=== PATIENT | female | born 1970 | race Caucasian/White ===

== ENCOUNTER 2019-10-24 12:59 | Emergency (ER) | payer BC, SELFPAY ==
[2019-10-24 13:12] VITALS: BP 158/72; PULSE 82; RESP 16; TEMP 36.7; O2SAT 98; BMI 45.1
--- NOTE | 2019-10-24 13:25 | HMH.EDUTC ---
[facility] [place] Impression: Torticollis, acute Disposition: Home, Self-Care Condition on Discharge: Good Instructions: Torticollis, DI for Torticollis, Cyclobenzaprine, Etodolac, DI for Muscle Spasm Additional Instructions: *Etodolac dotty 6 hours with meal as needed for pain/inflammation *Remember you had a Toradol shot in the clinic today, which is similar to Etodolac and Motrin Do not start Etodolac for the next 8-10 hrs *Not additional anti-inflammatory like motrin, aleve, advil with the above amount of Etodolac. You can still take Tylenol every 4 hours as needed if you need something else for pain *Ice 20 minutes every 2 hours for the first 48 hours after the initial injury followed by moist heat every 20 minutes 3-4 times a day to affected area *Muscle relaxer every 8 hours as needed for muscle spasms but remember, it WILL cause drowsiness You cannot take it and drive, operate machinery or care for small children. *Keep this area active, no movement leads to more stiffness, However take it easy and avoid heavy lifting pushing or pulling *Follow up with you family doctor if no improvement for further treatment Return if needed Straight to ER if any life threatening symptoms Prescriptions: Etodolac [Etodolac 200mg Cap*] 200 mg PO Q6H PRN #20 cap PRN Reason: Moderate Pain [id number] Cyclobenzaprine HCl [Flexeril 10mg tablet] 10 mg PO TID PRN #15 tab PRN Reason: Muscle Spasm Transmission Status[id number] Referrals: Provider,Referral, [Primary Care Provider] - As needed Time of Disposition: 14:00 Medical Decision Making - Yg Inquiry Pt receiving controlled substance: No Yg was queried for this patient: No Vital Signs: 10/24/19 13:12 10/24/19 14:00 Temperature 98.1 F 98.0 F Temperature Source Oral Oral Pulse Rate 70 Pulse Rate [Right Brachial] 82 Respiratory Rate 16 16 Blood Pressure 150/70 H Blood Pressure [Right Arm] 158/72 H Blood Pressure Mean [Right Arm] 100 Blood Pressure Source Automatic Cuff Blood Pressure Source [Right Arm] Automatic Cuff Blood Pressure Position Sitting Blood Pressure Position [Right Arm] Sitting 02 Sat by Pulse Oximetry 98 Oxygen Delivery Method Room Air Room Air Orders (Tests/Meds): ED MEDICATIONS Discontinued Medications Generic Name Dose Route Start Last Admin Trade Name Mary PRN Reason Stop Dose Admin Ketorolac Tromethamine 60 mg 10/24/19 13:28 10/24/19 13:39 Toradol 60mg/2ml Vial IM 10/24/19 13:29 60 mg ONCE ONE Administration [facility] [place] - General Stated complaint: neck pain Time Seen by Provider: 10/24/19 13:25 Mode of Arrival: Ambulatory Source of Information: Patient Limitations: No Limitations Description of Symptoms (Recalled from Triage Doc. by RN): Pt c/o her neck feeling stiff since Monday HEENT Symptoms (Recalled from RN notes): No Resp Symptoms (Recalled from RN notes): No Skin Symptoms (Recalled from RN notes): No MS Symptoms (Recalled from RN notes): Yes (stiff neck) Functional Status (Recalled from RN notes): na - History of Present Illness Provider Complaint: Patient states that she woke up a couple days ago with muscle spasm in the right side of her neck and shoulder area and unable to turn her head States that she has had muscle spasm like this before and used over the counter Muscle rubs and they helped but has not helped much this time and still having spasms - Related Data Previous Rx's Medication Instructions Recorded Cyclobenzaprine HCl [Flexeril 10mg 10 mg PO TID PRN #15 tab 10/24/19 tablet] Etodolac [Etodolac 200mg Cap*] 200 mg PO Q6H PRN #20 cap 10/24/19 Allergies Allergy/AdvReac Type Severity Reaction Status Date / Time No Known Allergies Allergy Verified 10/24/19 13:05 - Worker's Comp Is this a Worker's Comp case?: No [facility] History - Hepatitis A Screen Drug use history?: No High ris
[2019-10-24 14:00] VITALS: BP 150/70; PULSE 70; RESP 16; TEMP 36.7; O2SAT 98
== END 2019-10-24 14:00 | disposition home or self-care (01) ==
PROVIDERS: Emergency Provider Nurse Practitioner
DX: M43.6 Torticollis (principal); F17.210 Nicotine dependence, cigarettes, uncomplicated
CPT/HCPCS: 96372; 99201

== ENCOUNTER 2020-01-11 13:11 | Emergency (ER) | payer BC, SELFPAY ==
[2020-01-11 13:57] VITALS: BP 129/84; PULSE 80; RESP 20; O2SAT 99; BMI 33.4
--- NOTE | 2020-01-11 14:04 | HMH.EDUTC ---
[facility] [place] Clinical Impression: UTI (urinary tract infection) Qualifiers: Urinary tract infection type: acute cystitis Hematuria presence: without hematuria Qualified Code(s): N30.00 - Acute cystitis without hematuria Disposition: Home, Self-Care Condition on Discharge: Good Instructions: Urinary Tract Infection Additional Instructions: Increase fluids, water and not soda or tea. Can drink cranberry juice or cranberry extract. White front to back Wear cotton underwear Empty bladder after intercourse Start antibiotics immediately and make sure you take the full course although you may start to see improvement over the next 48 hours. You can eat yogurt or take probiotics to decrease diarrhea or yeast infection caused by the antibiotic Be sure to follow-up anytime for new or worsening symptoms in 48 hours for wound urine culture results be sure to let you PCP no recent urine for culture so they can request records and ensure that you have appropriate antibiotic if you are not getting better or getting worse. If symptoms worsen or do not improve return or be seen in the ER. Follow-up with primary care this week. Prescriptions: cephALEXin [Keflex 500mg Cap] 500 mg PO BID 10 Days #20 cap Prescription Printed Referrals: PCPTraci [Primary Care Provider] - Medical Decision Making - Yg Inquiry Pt receiving controlled substance: No Vital Signs: 01/11/20 13:57 Pulse Rate [Radial] 80 Respiratory Rate 20 Blood Pressure [Right Arm] 129/84 Blood Pressure Mean [Right Arm] 99 Blood Pressure Source [Right Arm] Automatic Cuff Blood Pressure Position [Right Arm] Sitting 02 Sat by Pulse Oximetry 99 Oxygen Delivery Method Room Air [facility] [place] - General Chief complaint: Urgent [facility] Stated complaint: uti or kidney infection Time Seen by Provider: 01/11/20 14:05 Mode of Arrival: Ambulatory Source of Information: Patient Limitations: No Limitations Description of Symptoms (Recalled from Triage Doc. by RN): possible uti HEENT Symptoms (Recalled from RN notes): No Resp Symptoms (Recalled from RN notes): No Skin Symptoms (Recalled from RN notes): No MS Symptoms (Recalled from RN notes): No Functional Status (Recalled from RN notes): wnl - History of Present Illness Provider Complaint: 49 yr old female presents for poss uti.. Pt states she is having freq, urgency and pelvic pressure. - Related Data Previous Rx's Medication Instructions Recorded Cyclobenzaprine HCl [Flexeril 10mg 10 mg PO TID PRN #15 tab 10/24/19 tablet] Etodolac [Etodolac 200mg Cap*] 200 mg PO Q6H PRN #20 cap 10/24/19 cephALEXin [Keflex 500mg Cap] 500 mg PO BID 10 Days #20 cap 01/11/20 Allergies Allergy/AdvReac Type Severity Reaction Status Date / Time No Known Allergies Allergy Verified 10/24/19 13:05 - Worker's Comp Is this a Worker's Comp case?: No [facility] History - Hepatitis A Screen Drug use history?: No High risk sexual behaviors?: No History of sexually transmitted infection?: No Currently employed?: No Childcare worker?: No Do you have indoor plumbing?: Yes Do you have electricity?: Yes Attestation statement:: This patient has been screened for Hepatitis A risk factors. I have reviewed the patient's past medical history: Yes Medical History: Denies:: Cancer, Diabetes Mellitus Type 1, Diabetes Mellitus Type 2, MRSA Other Surgeries: Yes: No Previous Surgery Amputation: No Fractures: No - Social History Smoking Status: Current every day smoker Tobacco Type: cigarettes # Packs/Day (cigarettes): 1 Alcohol Intake: never Occupational Status: other ROS Obtained: Yes Systems reviewed as appropriate & no additional complaints - Constitutional Constitutional: Reports system reviewed and no additional complaints, except as docu, Denies chills, Denies fever(s) - Eyes Eyes: Reports system reviewed and no additional complaints, except as docu, Denies dry eyes - ENT Ears, Nose, Mouth, and Throat: Reports
[2020-01-11 14:16] VITALS: BP 129/84; PULSE 80; RESP 20; TEMP 37; O2SAT 99
== END 2020-01-11 14:17 | disposition home or self-care (01) ==
LOC: ER 13:18 → UTC 13:26
PROVIDERS: Emergency Provider Nurse Practitioner Family
DX: N30.00 Acute cystitis without hematuria (principal); F17.210 Nicotine dependence, cigarettes, uncomplicated
CPT/HCPCS: 99201

== ENCOUNTER 2020-03-20 19:29 | Emergency (ER) | payer BC, SELFPAY ==
[2020-03-20 19:31] VITALS: BP 190/94; PULSE 96; RESP 20; TEMP 36.6; O2SAT 99; BMI 47.5
--- NOTE | 2020-03-20 19:42 | HMH.EDUTC ---
[facility] [place] Clinical Impression: Abdominal pain Qualifiers: Abdominal location: generalized Qualified Code(s): R10.84 - Generalized abdominal pain Disposition: Home, Self-Care Condition on Discharge: Good Instructions: DI for Abdominal Pain-Adult Additional Instructions: [place] diet, clear liquid. Return diarrhea sample for testing if diarrhea recurs. Return to [place]/ER if severe pain, uncontrollable vomiting, fever, rectal bleeding, etc Prescriptions: Dicyclomine HCl [Bentyl 10mg capsule] 10 mg PO TID 10 Days #30 cap Transmission Status: Pending to [facility] ondansetron HCL [Ondansetron 8mg tab*] 8 mg PO TIDP PRN 10 Days #30 tab PRN Reason: Nausea [facility] Referrals: PCP,No [Primary Care Provider] - Time of Disposition: 20:25 Medical Decision Making - Yg Inquiry Pt receiving controlled substance: No Yg was queried for this patient: No Vital Signs: 03/20/20 19:31 Temperature 97.9 F Temperature Source Oral Pulse Rate [Left Radial] 96 H Respiratory Rate 20 Blood Pressure [Right Arm] 190/94 H Blood Pressure Mean [Right Arm] 126 Blood Pressure Source [Right Arm] Automatic Cuff 02 Sat by Pulse Oximetry 99 Oxygen Delivery Method Room Air - Lab Data Lab Results 03/20/20 19:48: Urine Color Yellow, Urine Appearance Clear, Urine pH 5.5, Ur Specific [place] 1.030, Urine Protein Negative, Urine Glucose (UA) Negative, Urine Ketones Negative, Urine Blood Negative, Urine Nitrate Negative, Urine Bilirubin Negative, Urine Urobilinogen 0.2, Ur Leukocyte Esterase Negative Orders (Tests/Meds): ED MEDICATIONS Discontinued Medications Generic Name Dose Route Start Last Admin Trade Name Freq PRN Reason Stop Dose Admin Dicyclomine HCl 20 mg 03/20/20 20:00 03/20/20 20:09 Dicyclomine 10mg Capsule PO 03/20/20 20:01 20 mg ONCE ONE Administration Ondansetron HCl 4 mg 03/20/20 20:00 03/20/20 20:09 Ondansetron 4mg Odt SL 03/20/20 20:01 4 mg ONCE ONE Administration Medical Decision Narrative: Some relief with Zofran and Bentyl [facility] [place] HPI - General Stated complaint: Stomache Time Seen by Provider: 03/20/20 19:42 - History of Present Illness Provider Complaint: Abdominal pain and diarrhea started 2 nights ago after eating dinner. Had diarrhea, stomach cramps, and pain in her legs. No fever. [place] better today, but stomach cramping recurred tonight. No fever tonight. No vomiting or diarrhea yet tonight. Some dysuria. Denies ear pain or sore throat. Denies cough. No loss of sense of smell or taste. No known COVID19 exposure, but does work at [employer]. Takes Omeprazole daily. Has taken Tums as well but they have not helped. Onset (ago): day(s) (2) Location: abdomen Radiation: non-radiation Relieving factors: none Exacerbating factors: none Associated symptoms: nausea/vomiting Treatments prior to arrival: none - Related Data Previous Rx's Medication Instructions Recorded Cyclobenzaprine HCl [Flexeril 10mg 10 mg PO TID PRN #15 tab 10/24/19 tablet] Etodolac [Etodolac 200mg Cap*] 200 mg PO Q6H PRN #20 cap 10/24/19 cephALEXin [Keflex 500mg Cap] 500 mg PO BID 10 Days #20 cap 01/11/20 Dicyclomine HCl [Bentyl 10mg 10 mg PO TID 10 Days #30 cap 03/20/20 capsule] ondansetron HCL [Ondansetron 8mg 8 mg PO TIDP PRN 10 Days #30 tab 03/20/20 tab*] Allergies Allergy/AdvReac Type Severity Reaction Status Date / Time No Known Allergies Allergy Verified 10/24/19 13:05 [facility] History - Hepatitis A Screen Attestation statement:: This patient has been screened for Hepatitis A risk factors. I have reviewed the patient's past medical history: Yes Medical History: Denies:: Cancer, Diabetes Mellitus Type 1, Diabetes Mellitus Type 2, MRSA Other Surgeries: Yes: No Previous Surgery Amputation: No Fractures: No - Social History Smoking Status: Current every day smoker Tobacco Type: cigarettes # Pa
[2020-03-20 20:00] LABS: Apearance,Urine Clear (Clear); Bilirubin,Urine Negative (Negative); Blood, Urine Negative (Negative); Color,Urine Yellow (Yellow); Glucose,Urine (UA) Negative (Negative); Ketones,Urine Negative (Negative); PH,Urine 5.5 (5.0-8.5); Protein,Urine Negative (Negative); UTC Leukocyte Esterase,Urine Negative (Negative); UTC Nitrate,Urine Negative (Negative); Urobilinogen,Urine 0.2 EU/dl (0.2)
[2020-03-20 20:31] VITALS: BP 190/94; PULSE 96; RESP 20; TEMP 36.6; O2SAT 99
== END 2020-03-20 20:32 | disposition home or self-care (01) ==
PROVIDERS: Emergency Provider Physician Assistant
DX: R10.84 Generalized abdominal pain (principal); R19.7 Diarrhea, unspecified; F17.210 Nicotine dependence, cigarettes, uncomplicated
CPT/HCPCS: 81003; 99201

== ENCOUNTER 2021-03-02 19:37 | Emergency (ER) | payer BC, SELFPAY ==
[2021-03-02 20:19] VITALS: BP 136/88; PULSE 91; RESP 16; TEMP 37.1; O2SAT 98; BMI 44.4
[2021-03-02 21:16] VITALS: BP 136/88; PULSE 91; RESP 16; TEMP 37.1
--- NOTE | 2021-03-02 21:21 | HMH.EDUTC ---
[facility] [place] Clinical Impression: Bronchitis Sinusitis Qualifiers: Sinusitis location: unspecified location Chronicity: unspecified Qualified Code(s): J32.9 - Chronic sinusitis, unspecified Disposition: Home, Self-Care Condition on Discharge: Good Instructions: Sinusitis, DI for Sinusitis, Acute Bronchitis Additional Instructions: ? Start antibiotic today. Be sure to complete entire prescription even if feeling better ? Monitor temp. Tylenol every 4 hours as needed and / or ibuprofen every 6 hours as needed ( As long as your primary care physician has told you that it ok to take both. For fever/aches/pains ER if no less than 101 despite Tylenol or Motrin ? Humidifier/vaporizer or hot steamy shower ? Inhaler every 4-6 hours as needed like we discussed. If unsure how to use it, ask pharmacist to demonstrate how. Should help open airways and improve cough, wheezing, and shortness of breath *Tessalon Perles will not cause drowsiness but use at bedtime to help stop cough so that you may get some rest. *Start steroid today. Helps with inflammation therefore, cough and wheezing. Follow directions on the package. Reviewed side effects. Patient reports taking them before. Follow up IMMEDIATELY for new or worsening of symptoms OR no noticeable improvement over the next 48-72 hours. 911 immediately for any life threatening symptoms such as chest pain or difficulty breathing You were tested for today for COVID19 your test result should be back in the next 24-48 hours, you was given handout with instructions on how to log onto the [facility] portal if you have trouble you may call back for your results You was given a handout with instructions for Self Quarantine and Self isolation for while you wait on test results and what to do if they are positive If you are positive the Health Dept will be contacting you also Make sure to take your Vitamins Vit. C Vit D and Zinc if you can take them Prescriptions: Albuterol Sulfate [Proventil-HFA 90mcg/puff Inh] 1 - 2 puffs IH Q6HP PRN #1 each PRN Reason: Shortness Of Breath Transmission Status: Pending to [facility] predniSONE [Deltasone 10mg tablet] 10 mg PO BID 5 Days #10 tab Transmission Status: [facility] Azithromycin [Z-Dave 250mg Tab] 250 mg PO DIRECTED #6 tab Transmission Status: Pending to [facility] Referrals: Provider,Referral, MD [Primary Care Provider] - As needed Forms: Work/School Release Time of Disposition: 21:32 Medical Decision Making - Yg Inquiry Pt receiving controlled substance: No Yg was queried for this patient: No Vital Signs: 03/02/21 20:19 03/02/21 21:16 Temperature 98.7 F 98.7 F Temperature Source Oral Pulse Rate 91 H Pulse Rate [Left] 91 H Respiratory Rate 16 16 Blood Pressure 136/88 Blood Pressure [Right Arm] 136/88 Blood Pressure Mean [Right Arm] 104 02 Sat by Pulse Oximetry 98 Medical Decision Narrative: Patient states that she has taken azithromycin and prednisone in the past without complications or reactions [facility] [place] - General Stated complaint: cough&congestion Time Seen by Provider: 03/02/21 21:21 Mode of Arrival: Ambulatory Source of Information: Patient Limitations: No Limitations Description of Symptoms (Recalled from Triage Doc. by RN): pt c/o cough and congestion x3 days HEENT Symptoms (Recalled from RN notes): Yes (congestion) Resp Symptoms (Recalled from RN notes): Yes (cough) Skin Symptoms (Recalled from RN notes): No MS Symptoms (Recalled from RN notes): No Functional Status (Recalled from RN notes): na - History of Present Illness Provider Complaint: Patient state that she has been having sinus pain and pressure along with cough, sore throat and drianage States that she thinks it is her sinuses again States that she hasnt been around anyone with COVID that she is aware of but elderly mother lives with her and she wanted to get checked for that too Denies produc
== END 2021-03-02 21:38 | disposition home or self-care (01) ==
PROVIDERS: Emergency Provider Nurse Practitioner
DX: J20.9 Acute bronchitis, unspecified (principal); J32.9 Chronic sinusitis, unspecified; Z20.822 Contact with and (suspected) exposure to COVID-19; F17.210 Nicotine dependence, cigarettes, uncomplicated
CPT/HCPCS: 99202; C9803; G0463; U0003; U0005

== ENCOUNTER 2021-09-20 19:05 | Emergency (ER) | payer BC, SELFPAY ==
[2021-09-20 19:48] VITALS: BP 153/89; PULSE 115; RESP 20; TEMP 36.7; O2SAT 96; BMI 45.7
--- NOTE | 2021-09-20 20:09 | HMH.EDUTC ---
[facility] [place] Clinical Impression: Low back pain Qualifiers: Chronicity: acute Back pain laterality: left Sciatica presence: with sciatica Sciatica laterality: sciatica of left side Qualified Code(s): M54.42 - Lumbago with sciatica, left side Sciatica Qualifiers: Laterality: left Qualified Code(s): M54.32 - Sciatica, left side Disposition: Home, Self-Care Condition on Discharge: Good Instructions: Low Back Pain, DI for Back Pain With Sciatica Additional Instructions: Go home and rest. It would be best if you rested tomorrow too. No heavy lifting. No twisting. Take the oral medications as directed. The muscle relaxer (cyclobenzaprine--Flexeril) will make you drowsy, so don't drive or operate heavy machinery after taking it. Don't start the oral steroids (medrol dose pack) until tomorrow, since you had the shots in here today. Follow up with your regular doctor. GO TO THE ER FOR ANY WORSENING SYMPTOMS OR CONCERN, ESPECIALLY BOWEL OR BLADDER ISSUES, SADDLE AREA NUMBNESS, FEVER, ETC Prescriptions: Cyclobenzaprine HCl [Cyclobenzaprine 10mg Tab] 10 mg PO BIDP PRN #20 tab PRN Reason: Muscle Spasm Transmission Status: Received by [facility] methylPREDNISolone [Medrol] 4 mg PO DIRECTED 6 Days #21 packet Transmission Status: Received by [facility] Referrals: Wai Watkins [Primary Care Provider] - Forms: Work/School Release Time of Disposition: 20:39 Medical Decision Making - Medical Records Medical records reviewed: No: I reviewed the patient's medical records. - Yg Inquiry Pt receiving controlled substance: No Vital Signs: 09/20/21 19:48 09/20/21 20:44 Temperature 98.1 F 98.1 F Temperature Source Oral Pulse Rate 115 H Pulse Rate [Left] 115 H Respiratory Rate 20 20 Blood Pressure 153/89 H Blood Pressure [Right Arm] 153/89 H Blood Pressure Mean [Right Arm] 110 02 Sat by Pulse Oximetry 96 Orders (Tests/Meds): ED MEDICATIONS Discontinued Medications Generic Name Dose Route Start Last Admin Trade Name Freq PRN Reason Stop Dose Admin Ketorolac Tromethamine 60 mg 09/20/21 20:32 09/20/21 20:38 Ketorolac 60mg/2ml Vial IM 09/20/21 20:33 60 mg ONCE ONE Administration Ketorolac Tromethamine 60 mg 09/20/21 20:32 Ketorolac 60mg/2ml Vial IM 09/20/21 20:33 ONCE ONE Methylprednisolone Sodium Succinate 125 mg 09/20/21 20:32 09/20/21 20:38 Methylprednisolone Sod Succ 125mg Vial IM 09/20/21 20:33 125 mg ONCE ONE Administration Methylprednisolone Sodium Succinate 125 mg 09/20/21 20:32 Methylprednisolone Sod Succ 125mg Vial IM 09/20/21 20:33 ONCE ONE [facility] [place] - General Stated complaint: left leg pain Time Seen by Provider: 09/20/21 20:11 Mode of Arrival: Ambulatory Source of Information: Patient Limitations: No Limitations Description of Symptoms (Recalled from Triage Doc. by RN): pt states she started having pain that radiates from the top of her leg down to her foot. pt denies any injury. HEENT Symptoms (Recalled from RN notes): No Resp Symptoms (Recalled from RN notes): No Skin Symptoms (Recalled from RN notes): No MS Symptoms (Recalled from RN notes): Yes Functional Status (Recalled from RN notes): wnl - History of Present Illness Provider Complaint: She states that for the past 1 week she has been having left lower back pain that goes down her left leg when she bends or twists her back. She denies any injury. - Related Data Previous Rx's Medication Instructions Recorded Cyclobenzaprine HCl [Flexeril 10mg 10 mg PO TID PRN #15 tab 10/24/19 tablet] Etodolac [Etodolac 200mg Cap*] 200 mg PO Q6H PRN #20 cap 10/24/19 cephALEXin [Keflex 500mg Cap] 500 mg PO BID 10 Days #20 cap 01/11/20 Dicyclomine HCl [Bentyl 10mg 10 mg PO TID 10 Days #30 cap 03/20/20 capsule] ondansetron HCL [Ondansetron 8mg 8 mg PO TIDP PRN 10 Days #30 tab 03/20/20 tab*] Albuterol Sulfate [Proventil-
[2021-09-20 20:44] VITALS: BP 153/89; PULSE 115; RESP 20; TEMP 36.7
== END 2021-09-20 20:47 | disposition home or self-care (01) ==
PROVIDERS: Emergency Provider Nurse Practitioner Family; PCP Family Medicine
DX: M54.42 Lumbago with sciatica, left side (principal); M54.16 Radiculopathy, lumbar region; M79.662 Pain in left lower leg; F17.210 Nicotine dependence, cigarettes, uncomplicated; Z79.51 Long term (current) use of inhaled steroids; Z79.52 Long term (current) use of systemic steroids; Z79.899 Other long term (current) drug therapy
CPT/HCPCS: 96372; 99213; G0463

== ENCOUNTER 2022-03-27 11:38 | Emergency (ER) | payer BC, SELFPAY ==
--- NOTE | 2022-03-27 11:46 | EXP.UTC ---
Discharge Plan Disposition Patient Disposition: Home, Self-Care Condition: Good Prescriptions Prescriptions: New amoxicillin [amoxicillin] 500 mg tablet 500 mg PO TID 10 Days Qty: 30 0RF methylprednisolone 4 mg Tablets,Dose Pack 4 mg PO DIRECTED Qty: 21 0RF No Action cyclobenzaprine 10 MG tablet 10 mg PO TID PRN (Reason: Muscle Spasm) Qty: 15 0RF etodolac 200 MG capsule 200 mg PO Q6H PRN (Reason: Moderate Pain) Qty: 20 0RF prednisone 10 MG tablet 10 mg PO BID 5 Days Qty: 10 0RF azithromycin 250 MG tablet 250 mg PO DIRECTED Qty: 6 0RF Rx Instructions: Take two (2) tablets on day #1, then one (1) tablet day #2 thru #5 albuterol sulfate 200 PUFFS HFA aerosol inhaler 1 - 2 puffs IH Q6HP PRN (Reason: Shortness Of Breath) Qty: 1 0RF cephalexin 500 MG capsule 500 mg PO BID 10 Days Qty: 20 0RF ondansetron HCl 8 MG tablet 8 mg PO TIDP PRN (Reason: Nausea) 10 Days Qty: 30 0RF dicyclomine 10 MG capsule 10 mg PO TID 10 Days Qty: 30 0RF cyclobenzaprine 10 MG tablet 10 mg PO BIDP PRN (Reason: Muscle Spasm) Qty: 20 0RF methylprednisolone 4 MG tablets,dose pack 4 mg PO DIRECTED 6 Days Qty: 21 0RF Referrals Follow up/Referrals: Provider,Referral, MD [Primary Care Provider] - See instructions Activity Restrictions/Add. Instructions Additional Instructions/Restrictions: Drink plenty of fluids. Take tylenol or ibuprofen for pain or fever. Take the medications as directed. Follow up with your regular doctor. GO TO THE ER FOR ANY WORSENING SYMPTOMS Don't start the oral steroids until tomorrow, since you had the shot here today. Clinical Impressions Clinical Impression: Otitis media Instructions Patient Instructions: Middle Ear Infection, Dexamethasone Injection Discharge ED Provider: Aneesh Balderas [facility] HPI General Stated complaint: ear ache Time Seen by Provider: 03/27/22 11:46 History of Present Illness Provider Complaint: she c/o bilateral ear pain for the past 3 days. Related Data Previous Rx's Medication Instructions Recorded cyclobenzaprine 10 mg tablet 10 mg PO TID PRN Muscle Spasm #15 10/24/19 tabs etodolac 200 mg capsule 200 mg PO Q6H PRN Moderate Pain 10/24/19 #20 caps cephalexin 500 mg capsule 500 mg PO BID 10 days #20 caps 01/11/20 dicyclomine 10 mg capsule 10 mg PO TID 10 days #30 caps 03/20/20 ondansetron HCl 8 mg tablet 8 mg PO TIDP PRN Nausea 10 days 03/20/20 #30 tabs albuterol sulfate 90 mcg/actuation 1 - 2 puffs IH Q6HP PRN Shortness 03/02/21 aerosol inhaler Of Breath #1 ea azithromycin 250 mg tablet 250 mg PO DIRECTED #6 tabs 03/02/21 prednisone 10 mg tablet 10 mg PO BID 5 days #10 tabs 03/02/21 cyclobenzaprine 10 mg tablet 10 mg PO BIDP PRN Muscle Spasm #20 09/20/21 tabs methylprednisolone 4 mg tablets in 4 mg PO DIRECTED 6 days #21 09/20/21 a dose pack packets amoxicillin 500 mg tablet 500 mg PO TID 10 days #30 tabs 03/27/22 methylprednisolone 4 mg tablets in 4 mg PO DIRECTED #21 tabs 03/27/22 a dose pack Allergies Allergy/AdvReac Type Severity Reaction Status Date / Time No Known Allergies Allergy Verified 03/27/22 11:56 [facility] Social History Smoking Status: Current every day smoker tobacco type: cigarettes packs per day: 1 alcohol intake: never current occupational status: other Travel in the last 8 weeks: None ROS Obtained: Yes All systems reviewed & no additional complaints except as documented Constitutional Constitutional: Denies chills, Reports fever(s) and Reports poor appetite Eyes Eyes: Denies eye discharge ENT Ears, Nose, Mouth, and Throat: Denies ear discharge, Reports otalgia, Denies hearing loss, Denies sinus pain and Reports sore throat Cardiovascular Cardiovascular: Denies chest pain and Denies dyspnea Respiratory Respiratory: Denies chest congestion, Reports cough and Denies dy
[2022-03-27 11:54] VITALS: BP 185/95; PULSE 84; RESP 18; TEMP 36.6; O2SAT 96; BMI 42.9
[2022-03-27 12:59] VITALS: BP 185/95; PULSE 84; RESP 18; TEMP 36.6
== END 2022-03-27 12:59 | disposition home or self-care (01) ==
PROVIDERS: Emergency Provider Nurse Practitioner Family
DX: H66.90 Otitis media, unspecified, unspecified ear (principal)
CPT/HCPCS: 96372; 99212; G0463

== ENCOUNTER 2022-05-10 09:54 | Emergency (ER) | payer BC, SELFPAY ==
[2022-05-10 10:23] VITALS: PULSE 85; RESP 18; TEMP 36.7; O2SAT 98; BMI 48.2
[2022-05-10 10:55] VITALS: BP 152/75; PULSE 74; RESP 17; TEMP 36.5; O2SAT 98; BMI 39.1
[2022-05-10 11:09] LABS: Apearance,Urine Clear (Clear); Color,Urine Yellow (Yellow); Glucose,Urine (UA) Negative (Negative); Ketones,Urine Negative (Negative); Protein,Urine Negative (Negative); Specific Gravity, Urine 1.025 (1.005-1.030)
[2022-05-10 11:10] LABS: Bilirubin,Urine Negative (Negative); Blood, Urine Negative (Negative); UTC Leukocyte Esterase,Urine Negative (Negative); UTC Nitrate,Urine Negative (Negative); Urobilinogen,Urine 0.2 EU/dl (0.2)
--- NOTE | 2022-05-10 11:48 | EXP.UTC ---
Discharge Plan Disposition Patient Disposition: Home, Self-Care Condition: Good Prescriptions Prescriptions: No Action atorvastatin 40 mg tablet 40 mg PO HS lisinopril 20 mg tablet 20 mg PO DAILY omeprazole 20 mg capsule,delayed release(DR/EC) 20 mg PO HS Referrals Follow up/Referrals: Provider,Referral, [Primary Care Provider] - See instructions Activity Restrictions/Add. Instructions Additional Instructions/Restrictions: *Monitor Temp, Over the counter Motrin or Tylenol as directed/as needed Tylenol every 4 hours and Motrin every 6 hours (as long as your family doctor has told you that you can take it) for fever or pain. and straight to ER if unable to lower temp less than 101.0 after medication given *Warm salt water gargles may help to soothe the throat *Throat Lozenges? *Warm fluids like tea with honey may help to soothe the throat? *Sleep elevated *Humidifier/Vaporizer Over the counter Motrin and/or Tyelnol for fever and body aches Make sure to drink plenty of fluids Follow up IMMEDIATELY for new or worsening symptoms or no Noticeable improvement over the next 48-72 hours. 911 for difficulty breathing or swallowing You were tested for today for Upper Respiratory Panel with COVID19 your test result should be back in the next 24-48 hours, you may check your results on the [facility] [address] [facility] Clinical Impressions Clinical Impression: Viral syndrome Stand Alone Forms Stand Alone Forms: Work/School Release Instructions Patient Instructions: DI for Influenza -- Adult, Diarrhea, DI for Fever (Symptom) -- Adult Discharge ED Provider: Alka Sanderson [facility] [place] HPI General Stated complaint: possible kidney infection, back pain Mode of Arrival: Ambulatory Source of Information: Patient Limitations: No Limitations Time Seen by Provider: 05/10/22 11:48 Description of Symptoms (Recalled from Triage Doc. by RN): PATIENT C/O FEVER, LOWER BACK PAIN, HEADACHE, AND URINARY FREQUENCY THAT STARTED MONDAY HEENT Symptoms (Recalled from RN notes): Yes Resp Symptoms (Recalled from RN notes): No Skin Symptoms (Recalled from RN notes): No MS Symptoms (Recalled from RN notes): No Functional Status (Recalled from RN notes): WNL History of Present Illness Provider Complaint: Patient state that she started feeling bad on Monday with body aches, chills, diarrhea State that she has been feeling achy all over especially in her lower back and legs State that she has been around several people with the flu but felt like she was urinating more frequently and wasnt sure if she may have the flu or UTI so she wanted to get checked out States that everyone in her office has the flu Related Data Home Medications Medication Instructions Recorded Confirmed atorvastatin 40 mg tablet 40 mg PO HS Cholesterol 05/10/22 05/10/22 lisinopril 20 mg tablet 20 mg PO DAILY Hypertension 05/10/22 05/10/22 omeprazole 20 mg capsule,delayed 20 mg PO HS GERD 05/10/22 05/10/22 release Allergies Allergy/AdvReac Type Severity Reaction Status Date / Time No Known Allergies Allergy Verified 03/27/22 11:56 Worker's Comp Is this a Worker's Comp case?: No [facility] Disclaimer: The information contained in this section may have been updated after the patient was seen, as this information can be updated by other users. Medical History (Updated 05/10/22 @ 11:56 by Alka Sanderson APRN) Hyperlipidemia Hypertension Urinary tract infection Surgical History (Updated 05/10/22 @ 11:12 by Qiana Stevens RN) History of hysterectomy Social History (Updated 05/10/22 @ 11:12 by Qiana Stevens RN) Smoking Status: Current every day smoker tobacco type: cigarettes packs per day: 1 alcohol intake: never current occupational status: other Travel in the last 8 weeks: None ROS Obtained: Yes All systems reviewed & no additional complaints except as documented and Yes Systems reviewed as ap
[2022-05-10 11:56] VITALS: BP 152/75; PULSE 74; RESP 17; TEMP 36.5; O2SAT 98
[2022-05-10 12:50] LABS: Influenza B, PCR Not Detected (NotDetected)
[2022-05-10 12:52] LABS: Coronavirus 19, PCR Not Detected (NotDetected)
[2022-05-10 13:02] LABS: Influenza A, PCR Detected (NotDetected)
== END 2022-05-10 12:01 | disposition home or self-care (01) ==
LOC: ER 10:23 → UTC 10:23
PROVIDERS: Emergency Provider Nurse Practitioner
DX: B34.9 Viral infection, unspecified (principal)
CPT/HCPCS: 81003; 99212; C9803; G0463; U0003; U0005

== ENCOUNTER 2022-07-25 09:25 | Emergency (ER) | payer BC, SELFPAY ==
[2022-07-25 09:45] VITALS: BP 148/89; PULSE 99; RESP 20; TEMP 36.6; O2SAT 95; BMI 42.9
--- NOTE | 2022-07-25 09:55 | EXP.UTC ---
Discharge Plan Disposition Patient Disposition: Home, Self-Care Condition: Good Prescriptions Prescriptions: New diphenhydramine HCl [Diphenhydramine HCl] 25 mg capsule 25 mg PO Q6HP PRN (Reason: Itching) Qty: 30 0RF methylprednisolone 4 mg Tablets,Dose Pack 4 mg PO DIRECTED Qty: 21 0RF No Action atorvastatin 40 mg tablet 40 mg PO HS lisinopril 20 mg tablet 20 mg PO DAILY omeprazole 20 mg capsule,delayed release(DR/EC) 20 mg PO HS Referrals Follow up/Referrals: Provider,Referral, MD [Primary Care Provider] - See instructions Activity Restrictions/Add. Instructions Additional Instructions/Restrictions: Try to identify and avoid contact with the offending substance. Don't start the oral steroids until tomorrow. Follow up with your regular doctor. GO TO THE ER FOR ANY WORSENING SYMPTOMS OR CONCERNS Clinical Impressions Clinical Impression: Allergic reaction Instructions Patient Instructions: DI for General Allergic Reactions, Methylprednisolone Injection Discharge ED Provider: Aneesh Balderas [facility] General Stated complaint: rash, possible allergic reaction Time Seen by Provider: 07/25/22 09:55 History of Present Illness Provider Complaint: She states that for the past 2 days she has been having generalized itching and rash. She states that she switched the brand of what she washes her clothes in right before these symptoms began. In the past she has had a similar reaction after changing her washing powders. She denies any chest pain, shortness of breath, swelling of her throat and mouth. Related Data Home Medications Medication Instructions Recorded Confirmed atorvastatin 40 mg tablet 40 mg PO HS Cholesterol 05/10/22 07/25/22 lisinopril 20 mg tablet 20 mg PO DAILY Hypertension 05/10/22 07/25/22 omeprazole 20 mg capsule,delayed 20 mg PO HS GERD 05/10/22 07/25/22 release Previous Rx's Medication Instructions Recorded diphenhydramine HCl 25 mg capsule 25 mg PO Q6HP PRN Itching #30 caps 07/25/22 methylprednisolone 4 mg tablets in 4 mg PO DIRECTED #21 tabs 07/25/22 a dose pack Allergies Allergy/AdvReac Type Severity Reaction Status Date / Time No Known Allergies Allergy Verified 03/27/22 11:56 [facility] Disclaimer: The information contained in this section may have been updated after the patient was seen, as this information can be updated by other users. Medical History History of gastroesophageal reflux (GERD) Hyperlipidemia Hypertension Urinary tract infection Surgical History History of hysterectomy Social History Smoking Status: Current every day smoker tobacco type: cigarettes packs per day: 1 alcohol intake: never current occupational status: other Travel in the last 8 weeks: None ROS Obtained: Yes All systems reviewed & no additional complaints except as documented Constitutional Constitutional: Denies chills and Denies fever(s) Eyes Eyes: Denies eye discharge ENT Ears, Nose, Mouth, and Throat: Denies dizziness, Denies otalgia and Denies sore throat Cardiovascular Cardiovascular: Denies chest pain Respiratory Respiratory: Denies shortness of breath, Denies chest congestion, Denies cough, Denies stridor and Denies wheezing Gastrointestinal Gastrointestingal: Denies nausea or vomiting Musculoskeletal Musculoskeletal: Reports system reviewed and no additional complaints, except as documented and Denies arthralgias Integumentary/Breasts Skin/Breast: Reports as per HPI and Reports rash Neurologic Neurologic: Denies dizziness and Denies paresthesias Allergic/Immunologic Allergic/Immunologic: Denies wheezing Physical Exam General General appearance: alert and in no apparent distress Head Head exam: atraumatic, normocephalic and normal inspection Eye Eye e
[2022-07-25 10:05] VITALS: BP 148/89; PULSE 99; RESP 20; TEMP 36.6; O2SAT 95
== END 2022-07-25 10:35 | disposition home or self-care (01) ==
PROVIDERS: Emergency Provider Nurse Practitioner Family
DX: T49.2X5A Adverse effect of local astringents and local detergents, initial encounter (principal); R21 Rash and other nonspecific skin eruption
CPT/HCPCS: 96372; 99212; 99213; G0463

== ENCOUNTER 2023-04-24 17:35 | Emergency (ER) | payer BC, SELFPAY ==
[2023-04-24 18:05] VITALS: BP 150/92; PULSE 87; RESP 18; TEMP 36.8; O2SAT 98; BMI 40.1
--- NOTE | 2023-04-24 18:41 | EXP.UTC ---
Discharge Plan Disposition Patient Disposition: Home, Self-Care Condition: Good Prescriptions Prescriptions: New doxycycline hyclate 100 mg capsule 100 mg PO BID Qty: 20 0RF fluticasone propionate [Flonase Allergy Relief] 50 mcg/actuation spray,suspension 1 - 2 spray intranasal DAILY Qty: 16 0RF Rx Instructions: administer into each nostril daily No Action lisinopril 20 mg tablet 20 mg PO DAILY omeprazole 20 mg capsule,delayed release(DR/EC) 20 mg PO HS metformin 500 mg tablet extended release 24 hr 500 mg PO BID Referrals Follow up/Referrals: Provider,Referral, MD [Primary Care Provider] - See instructions Activity Restrictions/Add. Instructions Additional Instructions/Restrictions: Warm compresses to left lower eyelid may help to start area draining Take antibiotics as prescribed Follow up with eye doctor if no improvement Straight to ER if worsening of swelling around eye Follow up with Family Doctor if no improvement Clinical Impressions Clinical Impression: External hordeolum Qualifiers: Laterality: left Eyelid: lower Qualified Code(s): H00.015 - Hordeolum externum left lower eyelid Instructions Patient Instructions: DI for Hordeolum, Hordeolum Discharge ED Provider[place]ka [place] [facility] [place] General Stated complaint: itchy sweeling eyes, ear ache Mode of Arrival: Ambulatory Source of Information: Patient Limitations: No Limitations Time Seen by Provider: 04/24/23 18:41 Description of Symptoms (Recalled from Triage Doc. by RN): PATIENT C/O REDNESS AND SWELLING TO LEFT EYE AND LEFT EAR PAIN THAT STARTED THIS MORNING HEENT Symptoms (Recalled from RN notes): Yes Resp Symptoms (Recalled from RN notes): No Skin Symptoms (Recalled from RN notes): No MS Symptoms (Recalled from RN notes): No Functional Status (Recalled from RN notes): WNL History of Present Illness Provider Complaint: Patient states that this morning she woke and had a zit like area on her left lower eyelid and that is now slightly swollen and redness on her cheek and having pain in her left ear States that as the day states that it is puffy under the eye now and looks like that bump on her lower eyelid is ready to pop Related Data Home Medications Medication Instructions Recorded Confirmed lisinopril 20 mg tablet 20 mg PO DAILY Hypertension 05/10/22 04/24/23 omeprazole 20 mg capsule,delayed 20 mg PO HS GERD 05/10/22 04/24/23 release metformin 500 mg tablet,extended 500 mg PO BID 04/24/23 04/24/23 release 24 hr Previous Rx's Medication Instructions Recorded doxycycline hyclate 100 mg capsule 100 mg PO BID #20 caps 04/24/23 fluticasone propionate 50 1 - 2 spray intranasal DAILY #16 04/24/23 mcg/actuation nasal grams spray,suspension (Flonase Allergy Relief) Allergies Allergy/AdvReac Type Severity Reaction Status Date / Time No Known Allergies Allergy Verified 03/27/22 11:56 Worker's Comp Is this a Worker's Comp case?: No [facility] Disclaimer: The information contained in this section may have been updated after the patient was seen, as this information can be updated by other users. Medical History History of gastroesophageal reflux (GERD) Hyperlipidemia Hypertension Urinary tract infection Surgical History History of hysterectomy Social History Smoking Status: Current every day smoker tobacco type: cigarettes packs per day: 1 alcohol intake: never current occupational status: other Travel in the last 8 weeks: None ROS Obtained: Yes All systems reviewed & no additional complaints except as documented and Yes Systems reviewed as appropriate & no additional complaints except as documented Constitutional Constitutional: Reports system reviewed and no additional complaints, except as documented and Repor
[2023-04-24 18:55] VITALS: BP 150/92; PULSE 87; RESP 18; TEMP 36.8; O2SAT 98
== END 2023-04-24 18:58 | disposition home or self-care (01) ==
PROVIDERS: Emergency Provider Nurse Practitioner
DX: H00.015 Hordeolum externum left lower eyelid (principal); H92.02 Otalgia, left ear; I10 Essential (primary) hypertension; E78.5 Hyperlipidemia, unspecified; K21.9 Gastro-esophageal reflux disease without esophagitis; F17.210 Nicotine dependence, cigarettes, uncomplicated
CPT/HCPCS: 99212; 99214; G0463

== ENCOUNTER 2023-08-27 10:07 | Emergency (ER) | payer BC, SELFPAY ==
[2023-08-27 10:20] VITALS: BP 138/92; PULSE 78; RESP 18; TEMP 36.7; O2SAT 95; BMI 43.3
--- NOTE | 2023-08-27 10:25 | EXP.UTC ---
Discharge Plan Disposition Patient Disposition: Home, Self-Care Condition: Good Prescriptions Prescriptions: New azithromycin [Zithromax] 250 mg tablet 250 mg PO UD DOSE PK Qty: 6 0RF Rx Instructions: Take two (2) tablets today, then one (1) tablet days #2 thru #5 benzonatate 100 mg capsule 100 mg PO TIDP PRN (Reason: Cough) Qty: 30 0RF mupirocin 2 % ointment 1 applic topical TID 7 Days Qty: 15 0RF methylprednisolone 4 mg Tablets,Dose Pack 4 mg PO DIRECTED 6 Days Qty: 21 0RF Rx Instructions: Take 1 pack as directed for 6 days No Action lisinopril 20 mg tablet 20 mg PO DAILY omeprazole 20 mg capsule,delayed release(DR/EC) 20 mg PO HS metformin 500 mg tablet extended release 24 hr 500 mg PO BID fluticasone propionate [Flonase Allergy Relief] 50 mcg/actuation spray,suspension 1 - 2 spray intranasal DAILY Qty: 16 0RF Rx Instructions: administer into each nostril daily Referrals Follow up/Referrals: Provider,Referral, MD [Primary Care Provider] - See instructions Activity Restrictions/Add. Instructions Additional Instructions/Restrictions: Drink plenty of fluids. Take tylenol or ibuprofen for pain or fever. Take the medications as directed. Follow up with your regular doctor. GO TO THE ER FOR ANY WORSENING SYMPTOMS Apply the mupirocin to the affected area on your finger. Clinical Impressions Clinical Impression: Bronchitis, Cellulitis of finger, Acute viral syndrome Stand Alone Forms Stand Alone Forms: Work/School Release Instructions Patient Instructions: Cellulitis, DI for Acute Bronchitis Discharge ED Provider: Aneesh Balderas [facility] [place] [place] General Stated complaint: lose smell/taste congested diarrhea Time Seen by Provider: 08/27/23 10:25 History of Present Illness Provider Complaint: She states that for the past 5 days she has had worsening chest congestion, productive cough with yellowish sputum and malaise. She states that her cough is keeping her up at night. Related Data Home Medications Medication Instructions Recorded Confirmed lisinopril 20 mg tablet 20 mg PO DAILY Hypertension 05/10/22 08/27/23 omeprazole 20 mg capsule,delayed 20 mg PO HS GERD 05/10/22 08/27/23 release metformin 500 mg tablet,extended 500 mg PO BID 04/24/23 08/27/23 release 24 hr Previous Rx's Medication Instructions Recorded fluticasone propionate 50 1 - 2 spray intranasal DAILY #16 04/24/23 mcg/actuation nasal grams spray,suspension (Flonase Allergy Relief) azithromycin 250 mg tablet 250 mg PO UD DOSE PK #6 tabs 08/27/23 (Zithromax) benzonatate 100 mg capsule 100 mg PO TIDP PRN Cough #30 caps 08/27/23 methylprednisolone 4 mg tablets in 4 mg PO DIRECTED 6 days #21 tabs 08/27/23 a dose pack mupirocin 2 % topical ointment 1 applic topical TID 7 days #15 08/27/23 grams Allergies Allergy/AdvReac Type Severity Reaction Status Date / Time No Known Allergies Allergy Verified 08/27/23 10:27 [facility] Disclaimer: The information contained in this section may have been updated after the patient was seen, as this information can be updated by other users. Medical History History of gastroesophageal reflux (GERD) Hyperlipidemia Hypertension Urinary tract infection Surgical History History of hysterectomy Social History Smoking Status: Current every day smoker tobacco type: cigarettes packs per day: 1 alcohol intake: never current occupational status: other Travel in the last 8 weeks: None ROS Obtained: Yes All systems reviewed & no additional complaints except as documented Constitutional Constitutional: Reports poor appetite Eyes Eyes: Reports system reviewed and no additional complaints, except as documented ENT Ears, Nose, Mouth, and Throat: Reports as per HPI Cardiovascular Cardiovascular: Reports system reviewed and no additional complaints, except as documented and Denies chest pain Respiratory Respiratory: Denies shortness of breath, Reports chest congestion, Reports cough, Denies stridor and Denies wheezing Gastrointestinal Gastrointestingal: Reports system reviewed and no additional complaints, except as documented; Denies abdominal pain, diarrhea or vomiting Musculoskeletal Musculoskeletal: Reports system reviewed and no additional complaints, except as documented and Denies arthralgias Integumentary/Breasts Skin/Breast: Reports system reviewed and no additional complaints, except as documented and Denies rash Neurologic Neurologic: Denies paresthesias Allergic/Immunologic Allergic/Immunologic: Denies wheezing Physical Exam General General appearance: alert and in no apparent distress Eye Eye exam: Present normal appearance, PERRL and EOMI ENT ENT exam: Present mucous membranes moist and normal external ear exam Expanded ENT Exam External ear exam: Present normal external inspection TM/Canal exam: Bilateral TM: erythema and bulging Nose exam: Absent sinus tenderness Nasal speculum exam: Bilateral: normal Mouth exam: Present normal external inspection; Absent drooling Teeth exam: Present normal inspection Throat exam: Present tonsillar erythema and tonsillomegaly Neck Neck exam: Present normal inspection, full ROM and trachea midline; Absent tenderness, lymphadenopathy or thyromegaly Chest Chest inspection: Present normal inspection and symmetric chest wall rise; Absent tenderness or rash Respiratory Respiratory exam: Present normal lung sounds bilaterally; Absent respiratory distress, wheezes, stridor or accessory muscle use Cardiovascular Cardiovascular exam: Present regular rate, normal rhythm and normal heart sounds Abdominal Exam Abdominal exam: Present soft; Absent distention, tenderness, guarding, rebound or rigidity Extremities Exam Extremities exam: Present normal inspection, full ROM and normal capillary refill; Absent tenderness or calf tenderness Back Exam Back exam: Present normal inspection and full ROM; Absent tenderness Neurological Exam Neurological exam: Present alert and oriented X3 Psychiatric Psychiatric exam: Present normal affect and normal mood Skin Skin exam: Present warm, dry, intact and normal color Lymphatic Lymphatic Findings: no adenopathy Medical Decision Making Medical Records Medical records reviewed: No I reviewed the patient's medical records. Yg Inquiry Pt receiving controlled substance: No
[2023-08-27 10:43] LABS: UTC Influenza A Antigen Negative (Negative); UTC Influenza B Antigen Negative (Negative)
[2023-08-27 11:21] VITALS: BP 138/92; PULSE 78; RESP 18; TEMP 36.7; O2SAT 94
== END 2023-08-27 11:21 | disposition home or self-care (01) ==
PROVIDERS: Emergency Provider Nurse Practitioner Family
DX: J20.9 Acute bronchitis, unspecified (principal); R43.9 Unspecified disturbances of smell and taste; R05.8 Other specified cough; B34.9 Viral infection, unspecified; L03.019 Cellulitis of unspecified finger; F17.210 Nicotine dependence, cigarettes, uncomplicated; K21.9 Gastro-esophageal reflux disease without esophagitis; I10 Essential (primary) hypertension; E78.5 Hyperlipidemia, unspecified
CPT/HCPCS: 87635; 87804; 99212; 99214; G0463

== ENCOUNTER 2024-02-09 13:09 | Emergency (ER) | payer BC, SELFPAY ==
[2024-02-09 13:31] VITALS: BP 178/66; PULSE 113; RESP 16; TEMP 36.8; O2SAT 94; BMI 42.5
--- NOTE | 2024-02-09 13:58 | ED_ITS ---
Discharge Plan Disposition Patient Disposition: Home, Self-Care Condition: Good Prescriptions Prescriptions: New azithromycin [Zithromax] 250 mg tablet 250 mg PO UD DOSE PK Qty: 6 0RF Rx Instructions: Take two (2) tablets today, then one (1) tablet days #2 thru #5 benzonatate 100 mg capsule 100 mg PO TIDP PRN (Reason: Cough) Qty: 30 0RF methylprednisolone 4 mg Tablets,Dose Pack 4 mg PO DIRECTED 6 Days Qty: 21 0RF Rx Instructions: Take 1 pack as directed for 6 days ondansetron 4 mg Tablet,Disintegrating 4 mg PO Q8H PRN (Reason: Nausea) Qty: 12 0RF No Action lisinopril 20 mg tablet 20 mg PO DAILY omeprazole 20 mg capsule,delayed release(DR/EC) 20 mg PO HS metformin 500 mg tablet extended release 24 hr 500 mg PO BID fluticasone propionate [Flonase Allergy Relief] 50 mcg/actuation spray,suspension 1 - 2 spray intranasal DAILY Qty: 16 0RF Rx Instructions: administer into each nostril daily azithromycin [Zithromax] 250 mg tablet 250 mg PO UD DOSE PK Qty: 6 0RF Rx Instructions: Take two (2) tablets today, then one (1) tablet days #2 thru #5 benzonatate 100 mg capsule 100 mg PO TIDP PRN (Reason: Cough) Qty: 30 0RF mupirocin 2 % ointment 1 applic topical TID 7 Days Qty: 15 0RF methylprednisolone 4 mg Tablets,Dose Pack 4 mg PO DIRECTED 6 Days Qty: 21 0RF Rx Instructions: Take 1 pack as directed for 6 days Referrals Follow up/Referrals: Rekha Rios APRN [Primary Care Provider] - See instructions Activity Restrictions/Add. Instructions Additional Instructions/Restrictions: Drink plenty of fluids. Take tylenol or ibuprofen for pain or fever. Take the medications as directed. Follow up with your regular doctor. GO TO THE ER FOR ANY WORSENING SYMPTOMS Clinical Impressions Clinical Impression: Acute viral syndrome, Pharyngitis Sinusitis Qualifiers: Sinusitis location: unspecified location Chronicity: unspecified Qualified Code(s): J32.9 - Chronic sinusitis, unspecified Stand Alone Forms Stand Alone Forms: Work/School Release Instructions Patient Instructions: Sinusitis, DI for Sinusitis Print Language Print Language: Arabic Discharge ED Provider: Aneesh Bladeras [facility] [place] HPI General Stated complaint: fever, headache, body aches Mode of Arrival: Ambulatory Source of Information: Patient Limitations: No Limitations Time Seen by Provider: 02/09/24 13:58 Description of Symptoms (Recalled from Triage Doc. by RN): Reports headache and body aches. HEENT Symptoms (Recalled from RN notes): Yes Resp Symptoms (Recalled from RN notes): No Skin Symptoms (Recalled from RN notes): No MS Symptoms (Recalled from RN notes): No Functional Status (Recalled from RN notes): wnl Related Data Home Medications ?Medication ?Instructions ?Recorded ?Confirmed lisinopril 20 mg tablet 20 mg PO DAILY Hypertension 05/10/22 08/27/23 omeprazole 20 mg capsule,delayed 20 mg PO HS GERD 05/10/22 08/27/23 release metformin 500 mg tablet,extended 500 mg PO BID 04/24/23 08/27/23 release 24 hr Previous Rx's ?Medication ?Instructions ?Recorded fluticasone propionate 50 1 - 2 spray intranasal DAILY #16 04/24/23 mcg/actuation nasal grams spray,suspension (Flonase Allergy Relief) azithromycin 250 mg tablet 250 mg PO UD DOSE PK #6 tabs 08/27/23 (Zithromax) benzonatate 100 mg capsule 100 mg PO TIDP PRN Cough #30 caps 08/27/23 methylprednisolone 4 mg tablets in 4 mg PO DIRECTED 6 days #21 tabs 08/27/23 a dose pack mupirocin 2 % topical ointment 1 applic topical TID 7 days #15 08/27/23 grams azithromycin 250 mg tablet 250 mg PO UD DOSE PK #6 tabs 02/09/24 (Zithromax) benzonatate 100 mg capsule 100 mg PO TIDP PRN Cough #30 caps 02/09/24 methylprednisolone 4 mg tablets in 4 mg PO DIRECTED 6 days #21 tabs 02/09/24 a dose pack ondansetron 4 mg disintegrating 4 mg PO Q8H PRN Nausea #12 tabs 02/09/24 tablet Allergies Allergy/AdvReac Type Severity Reaction Status Date / Time No Known Allergies Allergy Verified 08/27/23 10:27 Worker's Comp Is this a Worker's Comp case?: No [facility] Disclaimer: The information contained in this section may have been updated after the patient was seen, as this information can be updated by other users. Medical History History of gastroesophageal reflux (GERD) Hyperlipidemia Hypertension Urinary tract infection Surgical History History of hysterectomy Social History Smoking Status: Current every day smoker tobacco type: cigarettes packs per day: 1 alcohol intake: never current occupational status: other Travel in the last 8 weeks: None ROS Obtained: Yes All systems reviewed & no additional complaints except as documented Constitutional Constitutional: Reports chills and Reports fever(s) Eyes Eyes: Denies eye discharge ENT Ears, Nose, Mouth, and Throat: Reports as per HPI Cardiovascular Cardiovascular: Denies chest pain Respiratory Respiratory: Denies chest congestion and Reports cough Gastrointestinal Gastrointestingal: Reports nausea; Denies abdominal pain, constipation, cramping, diarrhea or vomiting Musculoskeletal Musculoskeletal: Denies arthralgias Integumentary/Breasts Skin/Breast: Denies rash Neurologic Neurologic: Denies paresthesias Physical Exam General General appearance: alert and in no apparent distress Head Head exam: atraumatic, normocephalic and normal inspection Eye Eye exam: Present normal appearance, PERRL and EOMI ENT ENT exam: Present mucous membranes moist and normal external ear exam Expanded ENT Exam TM/Canal exam: Bilateral TM: erythema and bulging Nose exam: Absent sinus tenderness Mouth exam: Present normal external inspection; Absent drooling Teeth exam: Present normal inspection Throat exam: Present tonsillar erythema, tonsillomegaly and tonsillar exudate Neck Neck exam: Present normal inspection, full ROM and trachea midline; Absent tenderness, meningismus or lymphadenopathy Chest Chest inspection: Present normal inspection and symmetric chest wall rise; Absent tenderness Respiratory Respiratory exam: Present normal lung sounds bilaterally; Absent respiratory distress, wheezes, stridor or accessory muscle use Cardiovascular Cardiovascular exam: Present regular rate and normal rhythm; Absent systolic murmur or diastolic murmur Abdominal Exam Abdominal exam: Present soft and normal bowel sounds; Absent distention, tenderness, guarding, rebound or rigidity Extremities Exam Extremities exam: Present normal inspection and normal capillary refill; Absent calf tenderness Back Exam Back exam: Present normal inspection and full ROM; Absent tenderness, CVA tenderness (R) or CVA tenderness (L) Neurological Exam Neurological exam: Present alert, oriented X3 and CN II-XII intact Psychiatric Psychiatric exam: Present normal affect and normal mood Skin Skin exam: Present warm, dry, intact and normal color Medical Decision Making Medical Records Medical records reviewed: No I reviewed the patient's medical records. Yg Inquiry Pt receiving controlled substance: No Vital Signs: 02/09/24 13:31 Temperature 98.3 F Temperature Source Oral Pulse Rate [Radial] 113 H Respiratory Rate 16 Blood Pressure [Right Arm] 178/66 H Blood Pressure Mean [Right Arm] 103 Blood Pressure Source [Right Arm] Automatic Cuff Blood Pressure Position [Right Arm] Sitting 02 Sat by Pulse Oximetry 94 L Oxygen Delivery Method Room Air Lab Data Lab results reviewed: Yes I reviewed the patient's lab results.
[2024-02-09 14:13] LABS: UTC Strep Screen (Rapid) Negative (Negative)
[2024-02-09 14:44] VITALS: BP 178/66; PULSE 113; RESP 16; TEMP 36.8; O2SAT 94
== END 2024-02-09 14:45 | disposition home or self-care (01) ==
PROVIDERS: Emergency Provider Nurse Practitioner Family; PCP Nurse Practitioner Family
DX: U07.1 COVID-19 (principal); J02.8 Acute pharyngitis due to other specified organisms; R51.9 Headache, unspecified; R50.9 Fever, unspecified; J01.90 Acute sinusitis, unspecified
CPT/HCPCS: 87635; 87880; 99212; 99214; G0463

== ENCOUNTER 2024-05-09 12:15 | Outpatient (CLI) | payer BC, SELFPAY ==
--- NOTE | 2024-05-09 12:20 | XR_ITS ---
FINAL REPORT CLINICAL HISTORY: ACUTE PAIN OF LEFT KNEE COMPARISON: None FINDINGS: Three views of the left knee reveal no evidence of fracture or dislocation. The bony alignment is normal. Mild and moderate degenerative changes greatest in the medial compartment. Several loose bodies are seen posteriorly. There is no evidence of joint effusion. No localized soft tissue abnormality is seen. IMPRESSION: No acute abnormality identified. Mild and moderate degenerative changes. Several loose bodies. Reviewed, Interpreted and Dictated by Lorne Christianson III, MD Transcribed by Isabell Starr Authenticated and [facility]
== END 2024-05-09 23:59 | disposition home or self-care (01) ==
LOC: RAD 12:17
PROVIDERS: PCP Nurse Practitioner Family; Visit Provider Nurse Practitioner Family
DX: M25.562 Pain in left knee (principal)
CPT/HCPCS: 73562